=== PATIENT | male | born 1970 | race Caucasian/White ===

== ENCOUNTER 2019-04-26 05:35 | Emergency (ER) | payer BC ==
[~2019-04-26] VITALS: Ht 185.4 cm; Wt 108.9 kg
[2019-04-26] MEDS ORDERED: CLARITIN10 MG PO (05:42)
[2019-04-26] MEDS ORDERED: NORCO 5-325 TA1 EACH PO (06:01)
== END 2019-04-26 06:25 | disposition home or self-care (01) ==
LOC: ED 05:35
DX: S05.01XA Injury of conjunctiva and corneal abrasion without foreign body, right eye, initial encounter (principal); Z79.899 Other long term (current) drug therapy; X58.XXXA Exposure to other specified factors, initial encounter
CPT/HCPCS: 99283

== ENCOUNTER 2020-04-23 09:22 | Emergency (ER) | payer OTHER, BC ==
[~2020-04-23] VITALS: Ht 185.4 cm; Wt 108.9 kg
[~2020-04-23 09:22] MED LIST: CLARITIN10 MG PO; NORCO 5-325 TA1 EACH PO
== END 2020-04-23 10:24 | disposition home or self-care (01) ==
LOC: ED 09:22
DX: S53.402A Unspecified sprain of left elbow, initial encounter (principal); X50.0XXA Overexertion from strenuous movement or load, initial encounter
CPT/HCPCS: 73080; 99283-25